=== PATIENT | male | born 1965 | race Caucasian/White ===

== ENCOUNTER 2021-11-23 18:51 | Emergency (ER) | payer BC, OTHER ==
[2021-11-23 21:02] LABS: CORONAVIRUS COVID-19 NAA POSITIVE (NEGATIVE)
[2021-11-23] MEDS ORDERED: Ibuprofen 600 MG Tab PO ONE (21:41)
== END 2021-11-24 00:08 | disposition home or self-care (01) ==
LOC: JD.ED 18:51
DX: U07.1 COVID-19 (principal); K92.1 Melena; E66.9 Obesity, unspecified; Z68.30 Body mass index [BMI] 30.0-30.9, adult; Z88.5 Allergy status to narcotic agent
CPT/HCPCS: 0241U; 36415; 36600; 71045; 80053; 82803; 83735; 83880; 84443; 84484; 85007; 85027; 85379; 86140; 93005; 99284; A9270